=== PATIENT | female | born 1940 | race Caucasian/White ===

== ENCOUNTER 2017-02-08 15:19 | Emergency (ER) | payer OTHER ==
[~2017-02-08] VITALS: Ht 172.7 cm; Wt 78.0 kg
[2017-02-08 15:40] VITALS: BP 155/93
[2017-02-08] MEDS ORDERED: SPRYCEL140 MG PO (15:43)
[2017-02-08] MEDS ORDERED: NACL 0.9% 2,000 ML IV ONE (20:20)
--- NOTE | 2017-02-08 20:29 | NUR ---
TO ER BED 8
--- NOTE | 2017-02-08 20:45 | NUR ---
PT IS 77/F BIB SELF TO ED WITH C/O LEFT SIDED FLANK PAIN TODAY WITH VOMITING. PT STATES MED HX OF ACUTE LYMPHATIC LEUKEMIA SINCE 2011. DENIES N/D; SKIN IS WARM/DRY; AAOX4 WITH EVEN AND STEADY GAIT; LUNGS CLEAR BL; HR EVEN AND REGULAR; PT DENIES ANY FEVER, CP, SOB, OR COUGH AT THIS TIME; PATIENT STATES PAIN OF 8/10 AT THIS TIME; VSS; PATIENT POSITIONED FOR COMFORT; HOB ELEVATED; BEDRAILS UP X2; BED DOWN. ER MD MADE AWARE OF PT STATUS.
[2017-02-08] MEDS ORDERED: cefTRIAXone 1,000 MG VIAL ONE (21:06)
[2017-02-08] MEDS ORDERED: ACETAMINOPHEN EXTRA STRENGTH 500 MG TAB PO ONE (21:40)
--- NOTE | 2017-02-08 22:55 | NUR ---
PT RESTING IN BED NO SOB NOTED WILL CONTINUE TO MONITOR
[2017-02-08 23:58] VITALS: BP 135/78
--- NOTE | 2017-02-08 23:58 | NUR ---
Patient discharged with v/s stable. Written and verbal after care instructions given and explained. Patient alert, oriented and verbalized understanding of instructions. Ambulatory with steady gait. All questions addressed prior to discharge. ID band removed. Patient advised to follow up with PMD. Rx of CIPRO AND TYLENOL WITH CODEINE given. Patient educated on indication of medication including possible reaction and side effects. Opportunity to ask questions provided and answered.
== END 2017-02-08 23:58 | disposition home or self-care (01) ==
LOC: MED 15:19
DX: N12 Tubulo-interstitial nephritis, not specified as acute or chronic (principal); N13.30 Unspecified hydronephrosis; Z85.6 Personal history of leukemia; Z88.1 Allergy status to other antibiotic agents; Z90.49 Acquired absence of other specified parts of digestive tract; Z90.89 Acquired absence of other organs
CPT/HCPCS: 36415; 74176; 80053; 81001; 85025; 87086; 96365; 99285; J0696; J7030; J7060